=== PATIENT | male | born 1960 | race Caucasian/White ===

== ENCOUNTER 2020-12-07 12:45 | Outpatient (CLI) | payer MEDICARE, MEDICAID, SELFPAY ==
--- NOTE | ~2020-12-07 | MR_ITS ---
EXAMINATION: MR lumbar spine wo con EXAM DATE: 12/07/2020 14:09 INDICATION: Spondylosis. Radiculopathy, pain radiating upward from lumbar spine. Painful to lay flat. TECHNIQUE: Multi-sequential, multiplanar MR images of the lumbar spine were obtained without contrast . Sagittal T1, T2, T2 fat saturation images. Axial T2 weighted images. Comparison is made to prior examination from 08/24/2010. FINDINGS: Again there are cystic spaces along the nerve roots from the left L2 through the S1 levels causing mass effect and osseous remodeling, most likely perineural cysts. These appear unchanged in s ize compared to 2009. The conus medullaris terminates at the L1-2 level and has normal signal intensi ty and morphology. There is mild to moderate lumbar levoscoliosis. Mild diffuse thoracic disc diseas e with height maintained. There are no suspicious marrow signal abnormalities. The vertebral bodies a re aligned in the AP dimension. There are no suspicious marrow signal abnormalities. Level by level evaluation: T12-L1: Disc does not extend beyond the endplate margin. Facet arthropathy: Mild to moderate. Neural foraminal stenosis: No stenosis. Central canal stenosis: No stenosis. L1-L2: Disc does not extend beyond the endplate margin. Facet arthropathy: Moderate. Neural foraminal stenosis: Mild bilateral. Central canal stenosis: No stenosis. L2-L3: There is a mild to moderate diffuse disc bulge. Facet arthropathy: Moderate to severe. Neural foraminal stenosis: Mild to moderate left, mild right. Central canal stenosis: Mild. L3-L4: There is a mild diffuse disc bulge. Facet arthropathy: Moderate right, mild left. Neural foraminal stenosis: Mild to moderate right, mild left. Central canal stenosis: Mild. L4-L5: There is a mild to moderate diffuse disc bulge. Facet arthropathy: Severe right, mild left. Neural foraminal stenosis: Moderate to severe right. Central canal stenosis: Moderate. L5-S1: There is a mild to moderate diffuse disc bulge. Facet arthropathy: Severe right, mild to moderate left. Neural foraminal stenosis: Moderate bilateral. Central canal stenosis: Mild. Cystic lesions appear unchanged. There is been mild interval progression in neural foraminal stenosis compared to prior study. IMPRESSION: 1. Stable left-sided perineural cysts. 2. L4-5 moderate to severe right neural foraminal stenosis. 3. Mild to moderate levoscoliosis. Reviewed, dictated and finalized at location B. [employer]ER TENDER
--- NOTE | ~2020-12-07 | MR_ITS ---
EXAMINATION: MR thoracic spine wo con EXAM DATE: 12/07/2020 14:10 INDICATION: Spondylosis. Radiculopathy, pain radiating upward from lumbar spine. Painful to lay flat. TECHNIQUE: Multi-sequential, multiplanar MR images of the thoracic spine were obtained without contra st. Sagittal T1, T2, T2 fat saturation, axial T2 weighted images reviewed. There is no prior study for comparison. FINDINGS: There is mild mid thoracic dextrocurvature. There is mild to moderate upper thoracic disc d isease with mild kyphosis. Otherwise straightening of the thoracic spine and mild disc disease. There is moderate right neural foraminal stenosis at T2-3, mild to moderate left neural foraminal stenosis at T8-9. Otherwise the neural foramen and central canal are widely patent. There are some small disc bulges at mid thoracic levels. There is mild diffuse thoracic facet arthropathy. There are no suspic ious marrow signal abnormalities. The spinal cord signal intensity and intrinsic morphology is norm al. IMPRESSION: 1. T2-3 moderate right neural foraminal stenosis. 2. Mild upper thoracic kyphosis, mid thoracic dextroscoliosis. Reviewed, dictated and finalized at location B. ANCE GUARD
== END 2020-12-07 12:46 | disposition home or self-care (01) ==
PROVIDERS: PCP Family Medicine; Visit Provider Nurse Practitioner Family
DX: M47.25 Other spondylosis with radiculopathy, thoracolumbar region (principal); R53.1 Weakness; R53.81 Other malaise; G96.191 Perineural cyst; M41.9 Scoliosis, unspecified; M48.05 Spinal stenosis, thoracolumbar region; M47.27 Other spondylosis with radiculopathy, lumbosacral region; M48.07 Spinal stenosis, lumbosacral region; G62.9 Polyneuropathy, unspecified
CPT/HCPCS: 72146; 72148